=== PATIENT | female | born 1970 | race Caucasian/White ===

== ENCOUNTER 2025-05-07 15:20 | Emergency (ER) | payer OTHER, SELFPAY ==
[2025-05-07 15:33] VITALS: BP 143/72
--- NOTE | 2025-05-07 18:00 | ED.GENMED ---
History of Present Illness
General
Chief Complaint: Back Pain
Source: patient
Time Seen by Provider: 05/07/25 17:43
History of Present Illness
History of Present Illness:
55-year-old female with no significant past medical history presents to the emergency department for evaluation of lower back pain that started around a week and a half ago when she bent over to sweet pickle maker a dog bowl and has progressively gotten worse
since and is now at the point where any movement or even ambulating is causing her significant pain. She attempted 1 muscle relaxant on Thursday that was given to her by her mother and a couple of tablets of Advil yesterday but without any relief
which is what prompted her to come to the ER today. No red flag symptoms including bowel or urinary incontinence, saddle anesthesias, history of substance abuse, traumatic injuries, cancer history or diabetes, abnormal weight loss or night sweats.
She does note that as a child she was told she had a little curvature in her spine but this never caused any long-term issues.
Past History
Past History
ED Past Medical History: None
ED Past Surgical History: Other
Social History
Tobacco: Non-smoker
Alcohol: Occasional
Drug: None
Personal:
Living: with family
Review of Systems
Review of Systems
All Other Systems: ROS reviewed and negative except as documented in HPI and ROS
Phy Exam
Physical Exam
Physical Exam:
GENERAL: Alert , in no apparent distress at rest but appears quite uncomfortable with any attempted movements
EYE: clear conjunctiva b/l
NECK: Supple
ENT: o/p clr, mmm.
BACK: Very limited range of motion 2/2 pain, no focal tenderness, no midline bony tenderness, no rashes
NEUROLOGICAL: Alert and oriented, no focal neuro deficits. Patellar deep tendon reflexes intact and equal bilaterally, sensation grossly intact and equal to light touch bilateral lower extremities
SKIN: Warm and dry, skin intact.
MUSCULOSKELETAL: No edema, well perfused. EHL intact bilaterally
PSYCH: Normal and appropriate interaction.
Scores
Heart Failure Risk
Heart Failure Risk Score: Not Applicable
Heart Score for Chest Pain Patients
STEMI patient?: Not applicable
Withdrawal Assessment of Alcohol
Withdrawal Assessment Completed?: Not applicable
Course
Orders/Labs/Results
Orders:
Orders
05/07/25 17:57
Dexamethasone Sod Phosphate [Decadron] 10 mg IM NOW STA
Diazepam [Valium] 5 mg PO NOW STA
Ibuprofen [Motrin] 800 mg PO NOW STA
Lidocaine [Lidocaine 4% Patch] 1 patch TOPICAL NOW STA
Apply Lidocaine patch(s) to:: low back
05/07/25 17:59
CR Lumbar Spine Comp Min 4 Vw* Urgent
Comment:
Reason For Exam: low back pain
Vital Signs
Initial and Last Documented VS:
Initial Vital Signs
Temp Pulse Resp BP Pulse Ox
98.1 F 74 18 143/72 100
05/07/25 15:33 05/07/25 15:33 05/07/25 15:33 05/07/25 15:33 05/07/25 15:33
Last Documented Vital Signs
Temp Pulse Resp BP Pulse Ox
98.1 F 73 18 131/78 97
05/07/25 15:33 05/07/25 19:41 05/07/25 19:41 05/07/25 19:41 05/07/25 19:41
MDM/Problems Addressed
Differential Diagnosis Includes:
Muscle spasm
Spinal stenosis
Disc Herniation
Nerve Impingement
No risk factors for infectious etiology
No neuro claudication signs for cauda equina
UTI/Pyelo
MDM/Problems Addressed:
55-year-old female presenting to the ER with what appears to be significant muscle spasm/back pain causing very diminished range of motion and considerable pain. She did take 1 muscle relaxant 2 days ago with no relief and then yesterday took 2
separate doses of Advil also with minimal relief. No focal neurologic deficits noted on exam. Patient does appear quite uncomfortable with any attempted movements. Will treat here with 800 mg of Motrin, Decadron, lidocaine patch and Valium. XR
ordered.
*Radiology
Radiology exam reviewed: preliminary read by ED provider (Degenerative changes. no fx)
*Pulse Oximetry
SaO2: 100
Oxygen Mode of Delivery: Room air
Patient hypoxic: no
*Critical Care Note
Total Time (30-74mins, 75-104mins- exclusive of procedures): Not Applicable
Patient Management
Escalation/DeEscalation of care consider admission/obs:
Patients XR without any acute findings. Mild degenerative changes noted and discussed with patient. She has an appointment tomorrow with a chiropractor. I did advise close follow up with PCP as she will likely need some form of PT and if symptoms
persist or worsen more advanced imaging. Patient aware of return precautions
ED Attending Note
-
Portions of this chart may have been created with voice recognition software.� Occasional wrong word or��sound alike� substitutions may have occurred due to the inherent limitations of voice recognition software.
Discharge Plan
Departure
Patient Disposition: Home (Routine Discharge)
Date of Disposition: 05/07/25
Time of Disposition: 19:23
Patient with high blood pressure during this ER visit?: Yes
Discharge Problem:
Low back pain
Instructions: Low Back Pain (DC)
Prescriptions:
New
methylprednisolone [Medrol (Rik)] 4 mg tablets,dose pack
4 mg PO DIRECTED Qty: 21 0RF
oxycodone-acetaminophen [Percocet] 5-325 mg tablet
1 tab PO Q6HPRN PRN (Reason: pain) Qty: 8 0RF
baclofen 10 mg tablet
10 mg PO BID PRN (Reason: Pain) Qty: 10 0RF
Referrals:
Marlin Daniel MD [Family Provider]
Interventions
Interventions:
*Risk Screen - Suicide Last Done: 05/07/25 15:33
*General Assessment Last Done: 05/07/25 15:33
*Neglect/Abuse Screening Last Done: 05/07/25 18:15
*ED- Fall Risk Assessment Last Done: 05/07/25 19:53
*ED COVID-19 Vaccine History Last Done: 05/07/25 15:33
*ED Influenza Vaccine History Last Done: 05/07/25 15:33
*Nursing Disposition Last Done: 05/07/25 19:52
ED-Musculoskeletal Assessment Last Done: 05/07/25 18:15
Discharge Date and Time
Discharge Date/Time: 05/07/25 19:53
Print Language: [place]
[2025-05-07] MEDS: VALIUM 5 MG PO (18:06)
[2025-05-07] MEDS: MOTRIN 800 MG PO (18:06)
[2025-05-07] MEDS: LIDOCAINE 4% PATCH 1 PATCH TOPICAL (18:10)
[2025-05-07] MEDS: DECADRON 10 MG IM (18:10)
[2025-05-07 19:41] VITALS: BP 131/78
== END 2025-05-07 19:53 | disposition home or self-care (01) ==
LOC: EMR 15:20
PROVIDERS: EMERGENCY PHYSICIAN Emergency Medicine; FAMILY PHYSICIAN Family Medicine
DX: M54.50 Low back pain, unspecified (principal)
CPT/HCPCS: 99284; 96372; 72110